=== PATIENT | male | born 1945 | race Caucasian/White ===

== ENCOUNTER 2022-12-27 12:15 | Emergency (ER) | payer MEDICARE, OTHER ==
[~2022-12-27] VITALS: Ht 182.9 cm; Wt 100.0 kg
[2022-12-27] MEDS ORDERED: MORPHINE SULFATE 4 MG/ML SYR/VIAL IV ONE ×2 (13:30→14:00)
[2022-12-27] MEDS ORDERED: LIDOCAINE 2%HCL (LOCAL ANESTH.) INJ 20ML MDV ONE (13:41)
[2022-12-27] MEDS ORDERED: LIDOCAINE 2%HCL (LOCAL ANESTH.) INJ 10ml MDV IJ ONE (13:45)
[2022-12-27] MEDS ORDERED: cefTRIAXone SOD 1,000 MG VL IM ONE (15:30)
[2022-12-27] MEDS ORDERED: TETANUS-DIPTH-ACEL PERTUSSIS 0.5ML SYR Tdap IM ONE (15:30)
[2022-12-27] MEDS ORDERED: SODIUM CHLORIDE 0.9% 1,000 ML IV ONE (20:00)
[2022-12-27] MEDS ORDERED: ONDANSETRON HCL 4 MG/2 ML VIAL IV ONE (20:00)
[2022-12-27 20:44] VITALS: BP 145/80
== END 2022-12-27 20:58 | disposition short-term general hospital (02) ==
LOC: ER 12:15 → EDBD 12:15 → ER 20:58
DX: S68.119A Complete traumatic metacarpophalangeal amputation of unspecified finger, initial encounter (principal); S67.195A Crushing injury of left ring finger, initial encounter; I25.10 Atherosclerotic heart disease of native coronary artery without angina pectoris; Z98.890 Other specified postprocedural states; W45.8XXA Other foreign body or object entering through skin, initial encounter; Y93.89 Activity, other specified; Y92.89 Other specified places as the place of occurrence of the external cause; Y99.8 Other external cause status
CPT/HCPCS: 64450; 73120; 90471; 90715; 96361; 96372; 96374; 96375; 96376; 99285; J0696; J2270; J2405; J7030

== ENCOUNTER 2023-12-26 18:03 | Inpatient (IN) | payer MEDICARE, OTHER ==
[~2023-12-26] VITALS: Ht 167.6 cm; Wt 66.4 kg
[2023-12-26 18:44] LABS: Basophils # (auto) 0 10 ^3/uL (0-0.2); Basophils % (auto) 0.4 % (0.0-2.0); Eosinophils # (auto) 0 10 ^3/uL (0-0.8); Eosinophils % (auto) 0.2 % (0.0-7.0); Hematocrit 41.5 % (41.0-53.0); Hemoglobin 13.6 g/dL (13.5-17.5); Lymphocytes # (auto) 2.1 10 ^3/uL (0.4-5.4); Lymphocytes % (auto) 21.9 % (10.0-50.0); Mean Corpuscular Hemoglobin 28.4 pg (28.0-32.0); Mean Corpuscular Hgb Conc. 32.8 g/dL (32.0-36.0); Mean Corpuscular Volume 86.5 fL (80.0-100.0); Monocytes % (auto) 10.4 % (0.0-12.0); Neutrophils # (auto) 6.5 10 ^3/uL (1.6-8.6); Neutrophils % (auto) 67.1 % (37.0-80.0); Nucleated Red Blood Cells % 0.1 %; Red Blood Cells 4.79 10^6/uL (4.5-5.90); Red Cell Distribution Width 15.2 % (11.8-14.3); White Blood Cell 9.7 10^3/uL (4.4-10.8)
[2023-12-26 18:56] LABS: Alanine Aminotransferase 20 U/L (7-40); Albumin 5.2 g/dL (3.2-4.8); Alkaline Phosphatase 50 U/L (46-116); Anion Gap 14 (5-15); Aspartate Aminotransferase 18 U/L (13-40); BUN/Creatinine Ratio 16.7 (10.0-20.0); Bilirubin, Total 0.9 mg/dL (0.2-1.0); Blood Urea Nitrogen 18 mg/dL (9-23); Calcium 9.4 mg/dL (8.5-10.1); Carbon Dioxide 25 mmol/L (20-30); Chloride 95 mmol/L (98-107); Glucose 184 mg/dL (74-106); Potassium 3.6 mmol/L (3.5-5.1); Sodium 134 mmol/L (136-145); Total Protein 8.2 g/dL (5.7-8.2)
[2023-12-26 18:58] LABS: INR 1.14 (0.9-1.15); Partial Thromboplastin Time 31.9 SEC (24.5-34.5); Prothrombin Time 11.9 sec (9.3-11.8)
[2023-12-26 19:10] LABS: Magnesium 1.1 mg/dL (1.6-2.6)
[2023-12-26 19:20] VITALS: O2SAT 95
[2023-12-26] MEDS: METOCLOPRAMIDE HCL 5MG/ml INJ 2ml VIAL IV ONE (19:34)
[2023-12-26] MEDS: LABETALOL HCL 5 MG/ML 4ML SYRINGE IV ONE ×2 (19:34→21:45)
[2023-12-26] MEDS ORDERED: ONDANSETRON HCL 4 MG/2 ML VIAL IV PRN (21:45)
[2023-12-26] MEDS ORDERED: DEXTROSE (50%) 50ML SYRG IV PRN (21:45)
[2023-12-26] MEDS ORDERED: ACETAMINOPHEN 325 MG TAB PO PRN (21:45)
[2023-12-26] MEDS: IOHEXOL 350 MG/ML 100ML IJ ONE (21:55)
[2023-12-26] MEDS: MAGNESIUM SULFATE 1GM/100ML 100 ML IV ONE (23:21)
[2023-12-26] MEDS: METOPROLOL TARTRATE 50 MG TAB PO SCH (23:21)
[2023-12-27] MEDS: ACCU-CHEK COMFORT CURVE STRIP VI SCH (00:39)
[2023-12-27] MEDS: InsuLIN REG 1unit/0.01ml Soln (100units/ml) SC SCH (00:46)
[2023-12-27 05:25] LABS: Basophils # (auto) 0 10 ^3/uL (0-0.2); Basophils % (auto) 0.3 % (0.0-2.0); Eosinophils # (auto) 0 10 ^3/uL (0-0.8); Hematocrit 36.4 % (41.0-53.0); Hemoglobin 12.1 g/dL (13.5-17.5); Lymphocytes # (auto) 2.1 10 ^3/uL (0.4-5.4); Lymphocytes % (auto) 22.4 % (10.0-50.0); Mean Corpuscular Hemoglobin 28.5 pg (28.0-32.0); Mean Corpuscular Hgb Conc. 33.1 g/dL (32.0-36.0); Mean Corpuscular Volume 85.9 fL (80.0-100.0); Monocytes # (auto) 1.3 10 ^3/uL (0-1.3); Neutrophils % (auto) 63.3 % (37.0-80.0); Red Blood Cells 4.24 10^6/uL (4.5-5.90); Red Cell Distribution Width 15.3 % (11.8-14.3); White Blood Cell 9.4 10^3/uL (4.4-10.8)
[2023-12-27 05:38] LABS: Calcium 8.6 mg/dL (8.7-10.4); Chloride 98 mmol/L (98-107); Potassium 3.5 mmol/L (3.5-5.1); Sodium 133 mmol/L (136-145)
[2023-12-27 05:39] LABS: Anion Gap 9 (5-15); Carbon Dioxide 26 mmol/L (20-30)
[2023-12-27 05:44] LABS: BUN/Creatinine Ratio 13.5 (10.0-20.0); Blood Urea Nitrogen 13 mg/dL (9-23); Glucose 136 mg/dL (74-106)
[2023-12-27 07:45] VITALS: O2SAT 91
[2023-12-27] MEDS: amLODIPine BESYLATE 5 MG TAB PO SCH (10:14)
[2023-12-27] MEDS: ENOXAPARIN SOD 40 MG/0.4 ML SYRINGE SC SCH (10:14)
[2023-12-27] MEDS: TAMSULOSIN HYDROCHLORIDE 0.4 MG CAP PO SCH (18:32)
[2023-12-27] MEDS: ATORVASTATIN 20 MG TAB PO SCH (22:22)
[2023-12-27] MEDS ORDERED: MET50T PO (23:04)
[2023-12-27] MEDS ORDERED: OMEP1CAP70 PO (23:04)
[2023-12-27] MEDS ORDERED: GLIM4TAB42 PO (23:04)
[2023-12-27] MEDS ORDERED: TAMS0.4C36 PO (23:06)
[2023-12-27] MEDS ORDERED: FLU01T PO (23:06)
[2023-12-27] MEDS ORDERED: AML5T PO (23:07)
[2023-12-27] MEDS ORDERED: PIO30T PO (23:08)
[2023-12-27] MEDS ORDERED: SITA50TA28 PO (23:09)
[2023-12-27] MEDS ORDERED: ROSU20TA14 PO (23:09)
[2023-12-27] MEDS ORDERED: ASPI1TAB20 PO (23:10)
[2023-12-27 23:11] VITALS: BP 153/61; PULSE 64; RESP 18; TEMP 98; O2SAT 94
[2023-12-27] MEDS: cloNIDine HCL 0.1 MG TAB PO PRN (23:54)
[2023-12-28] VITALS (8 sets, daily range): BP systolic 117–138; BP diastolic 59–75; PULSE 66–73; RESP 14–20; TEMP 97.2–97.9; O2SAT 95–97
[2023-12-28 06:25] LABS: Basophils # (auto) 0 10 ^3/uL (0-0.2); Basophils % (auto) 0.3 % (0.0-2.0); Eosinophils # (auto) 0.1 10 ^3/uL (0-0.8); Hematocrit 37.9 % (41.0-53.0); Hemoglobin 12.5 g/dL (13.5-17.5); Lymphocytes # (auto) 2.2 10 ^3/uL (0.4-5.4); Lymphocytes % (auto) 31.4 % (10.0-50.0); Mean Corpuscular Hemoglobin 28.5 pg (28.0-32.0); Mean Corpuscular Hgb Conc. 32.9 g/dL (32.0-36.0); Mean Corpuscular Volume 86.4 fL (80.0-100.0); Monocytes # (auto) 1.1 10 ^3/uL (0-1.3); Monocytes % (auto) 15.8 % (0.0-12.0); Neutrophils # (auto) 3.6 10 ^3/uL (1.6-8.6); Neutrophils % (auto) 51.5 % (37.0-80.0); Red Blood Cells 4.39 10^6/uL (4.5-5.90); Red Cell Distribution Width 15.4 % (11.8-14.3)
[2023-12-28 06:26] LABS: Anion Gap 9 (5-15); Carbon Dioxide 29 mmol/L (20-30); Chloride 97 mmol/L (98-107); Potassium 3.4 mmol/L (3.5-5.1); Sodium 135 mmol/L (136-145)
[2023-12-28 06:27] LABS: Calcium 9.3 mg/dL (8.5-10.1)
[2023-12-28 06:32] LABS: BUN/Creatinine Ratio 12.6 (10.0-20.0); Blood Urea Nitrogen 13 mg/dL (9-23); Glucose 216 mg/dL (74-106); Triglycerides 94 mg/dL (< 150)
[2023-12-28 06:33] LABS: LDL Cholesterol 44 mg/dL (< 100)
[2023-12-28 06:34] LABS: Cholesterol 93 mg/dL (< 200); HDL Cholesterol 33 mg/dL (40-59)
[2023-12-28] MEDS: ASPirin 81 mg TAB PO SCH (10:09)
[2023-12-28] MEDS: amLODIPine BESYLATE 5 MG TAB PO SCH (10:09)
[2023-12-28 10:36] LABS: Amphetamine Screen, Urine Neg (NEGATIVE); Barbiturate Scree,Urine Neg (NEGATIVE); Benzodiazephine Screen, Urine Neg (NEGATIVE); Cannabinoid Screen, Urine Neg (NEGATIVE); Cocaine Screen, Urine Neg (NEGATIVE); Opiate Scree,Urine Neg (NEGATIVE); Phencyclidine Screen, Urine Neg (NEGATIVE)
[2023-12-28 11:19] LABS: Urine WBC None Seen /hpf (0 - 3)
[2023-12-28 11:33] LABS: Urine Bacteria NONE SEEN /hpf (None Seen); Urine Blood Negative /uL (Negative); Urine Clarity Clear (Clear); Urine Color Colorless (Yellow); Urine Protein, UAD TRACE (Negative); Urine Specific Gravity 1.013 (1.001-1.035); Urine Urobilinogen Normal (Negative)
[2023-12-28] MEDS: POTASSIUM CHL 20 Meq TABLET PO ONE (11:46)
[2023-12-28] MEDS: FLUDROCORTISONE ACETATE 0.1 MG TAB PO ONE (11:47)
[2023-12-28] MEDS: TAMSULOSIN HYDROCHLORIDE 0.4 MG CAP PO SCH (18:00)
[2023-12-29 05:00] VITALS: BP 100/62; PULSE 67; RESP 16; TEMP 97.5; O2SAT 96
[2023-12-29 06:21] LABS: Anion Gap 7 (5-15); Carbon Dioxide 30 mmol/L (20-30); Chloride 101 mmol/L (98-107); Potassium 4.2 mmol/L (3.5-5.1); Sodium 138 mmol/L (136-145)
[2023-12-29 06:22] LABS: Calcium 9.5 mg/dL (8.5-10.1)
[2023-12-29 06:27] LABS: BUN/Creatinine Ratio 12.5 (10.0-20.0); Blood Urea Nitrogen 13 mg/dL (9-23); Glucose 186 mg/dL (74-106)
[2023-12-29 08:00] VITALS: PULSE 64; RESP 16; O2SAT 92
[2023-12-29 09:00] VITALS: BP 113/68; PULSE 79; RESP 18; TEMP 97.6; O2SAT 96
[2023-12-29] MEDS: FLUDROCORTISONE ACETATE 0.1 MG TAB PO SCH (09:29)
[2023-12-29] MEDS ORDERED: DIVA1TAB58 PO (10:08)
[2023-12-29 11:32] VITALS: BP 129/60; PULSE 64; RESP 16; TEMP 98.3; O2SAT 95
== END 2023-12-29 12:15 | disposition home or self-care (01) | DRG 101 ==
LOC: ER 18:03 → OVERFLOW 22:12 → EAST 22:12
PROVIDERS: ADMIT Nurse Practitioner; ATTEND Internal Medicine
DX: G40.209 Localization-related (focal) (partial) symptomatic epilepsy and epileptic syndromes with complex partial seizures, not intractable, without status epilepticus (principal); E83.42 Hypomagnesemia; E11.9 Type 2 diabetes mellitus without complications; E78.5 Hyperlipidemia, unspecified; I10 Essential (primary) hypertension; I25.10 Atherosclerotic heart disease of native coronary artery without angina pectoris; N20.0 Calculus of kidney; R44.1 Visual hallucinations; E11.649 Type 2 diabetes mellitus with hypoglycemia without coma; N40.0 Benign prostatic hyperplasia without lower urinary tract symptoms; I95.1 Orthostatic hypotension; Z79.899 Other long term (current) drug therapy; Z87.442 Personal history of urinary calculi; Z95.1 Presence of aortocoronary bypass graft; Z95.5 Presence of coronary angioplasty implant and graft
CPT/HCPCS: 36415; 70450; 70496; 70551; 71045; 80048; 80053; 80061; 80307; 81001; 82962; 83036; 83735; 83880; 84443; 84484; 85025; 85610; 85730; 93005; 93306; 93886; 95819; 96374; 96375; 97163; 99291; G0378; J1815; J3490